=== PATIENT | female | born 1955 | race Caucasian/White ===

== ENCOUNTER → 2018-07-07 | Outpatient (CLI) | payer OTHER ==
--- NOTE | 2018-07-07 09:28 | RAD ---
DATE: 07/07/2018 EXAM: DIGITAL SCREEN BILAT W/CAD HISTORY: Previous left breast cancer COMPARISON: 06/17/2016 This study was interpreted with the benefit of Computerized Aided Detection (CAD). Breast Density: SCATTERED The breast parenchyma shows scattered fibroglandular densities. Breast parenchyma level B. FINDINGS: There is architectural distortion in the left breast which is unchanged and apparently posttherapeutic. An old breast biopsy marker is present on the left. No new or enlarging breast densities are seen. There are scattered benign type calcifications in both breasts. No suspicious microcalcifications have developed. IMPRESSION: Stable mammograms without evidence of malignancy. BI-RADS CATEGORY: 2 BENIGN FINDING(S) RECOMMENDED FOLLOW-UP: 12M 12 MONTH FOLLOW-UP PQRS compliance statement: Patient information was entered into a reminder system with a target due date for the next mammogram. Mammography is a sensitive method for finding small breast cancers, but it does not detect them all and is not a substitute for careful clinical examination. A negative mammogram does not negate a clinically suspicious finding and should not result in delay in biopsying a clinically suspicious abnormality. "Our facility is accredited by the [employer] Mammography [employer]."
== END | disposition home or self-care (01) ==
LOC: MAMMO 07:55
PROVIDERS: ATTEND Family Medicine
DX: Z12.31 Encounter for screening mammogram for malignant neoplasm of breast (principal)
CPT/HCPCS: 77067

== ENCOUNTER → 2019-08-17 | Outpatient (CLI) | payer MEDICARE, OTHER ==
--- NOTE | 2019-08-18 14:04 | RAD ---
DATE: 08/17/2019 EXAM: MAMMO DYLLAN SCREENING BILATERAL HISTORY: Routine screening. History of left breast cancer diagnosed in 2004. COMPARISON: 06/17/2016 and 07/07/2018 mammographic exams This study was interpreted with the benefit of Computerized Aided Detection (CAD). Breast Density: SCATTERED The breast parenchyma shows scattered fibroglandular densities. Breast parenchyma level B. FINDINGS: Biopsy clip marker involves the left upper inner breast anteriorly. Distortion involving the left breast presumably related to prior intervention is stable. No suspicious new distortion. No mass or suspicious calcification in the interval. IMPRESSION: Stable BI-RADS CATEGORY: 1 NEGATIVE RECOMMENDED FOLLOW-UP: 12M 12 MONTH FOLLOW-UP PQRS compliance statement: Patient information was entered into a reminder system with a target due date for the next mammogram. Mammography is a sensitive method for finding small breast cancers, but it does not detect them all and is not a substitute for careful clinical examination. A negative mammogram does not negate a clinically suspicious finding and should not result in delay in biopsying a clinically suspicious abnormality. "Our facility is accredited by the [employer] Mammography [employer]."
== END | disposition home or self-care (01) ==
LOC: MAMMO 07:40
PROVIDERS: ATTEND Family Medicine
DX: Z12.31 Encounter for screening mammogram for malignant neoplasm of breast (principal); Z85.3 Personal history of malignant neoplasm of breast
CPT/HCPCS: 77063; 77067

== ENCOUNTER → 2020-09-24 | Outpatient (CLI) | payer MEDICARE, OTHER ==
--- NOTE | 2020-09-25 14:03 | RAD ---
DATE: 09/24/2020 1:45 PM EXAM: MAMMO DYLLAN SCREENING BILATERAL HISTORY: Screening COMPARISON: 08/17/2019, 07/07/2018 Bilateral CC and MLO views of the breasts were performed. Bilateral breast tomosynthesis was performed in CC and MLO projections. This study was interpreted with the benefit of Computerized Aided Detection (CAD). FINDINGS: Breast Density: SCATTERED The breast parenchyma shows scattered fibroglandular densities. Breast parenchyma level B No suspicious masses, microcalcifications or architectural distortion is present to suggest malignancy in either breast. The visualized axillae are unremarkable. IMPRESSION: No mammographic evidence of malignancy. BI-RADS CATEGORY: 1 NEGATIVE RECOMMENDED FOLLOW-UP: 12M 12 MONTH FOLLOW-UP Annual screening mammography is recommended, unless clinically indicated sooner based on symptoms or change in physical exam. PQRS compliance statement: Patient information was entered into a reminder system with a target due date for the next mammogram. Mammography is a sensitive method for finding small breast cancers, but it does not detect them all and is not a substitute for careful clinical examination. A negative mammogram does not negate a clinically suspicious finding and should not result in delay in biopsying a clinically suspicious abnormality. "Our facility is accredited by the [employer] Mammography [employer]."
== END ==
LOC: MAMMO 13:41
PROVIDERS: ATTEND Family Medicine
DX: Z12.31 Encounter for screening mammogram for malignant neoplasm of breast (principal); N64.89 Other specified disorders of breast
CPT/HCPCS: 77063; 77067

== ENCOUNTER → 2021-09-24 | Outpatient (CLI) | payer MEDICARE, OTHER ==
--- NOTE | 2021-09-24 17:08 | RAD ---
Bilateral digital screening mammogram to include digital breast tomosynthesis (3-D mammography) 09/24 CLINICAL HISTORY: Screening study. Digital MLO and CC mammograms of both breasts were obtained. Additionally digital breast tomosynthesi s images (3-D mammography) of both breasts in the CC and MLO projections were obtained. Comparison study is dated 09/24/2020. The breast parenchyma is composed of scattered fibronodular densities which could obscure a lesion on mammography (breast density B). Benign-appearing calcifications are seen within both breasts. No spi culated mass is seen. No malignant appearing calcification or area of architectural distortion is not ed. Digital breast tomosynthesis images demonstrate no spiculated mass. No malignant appearing calcificat ion is seen. Impression: BI-RADS Category 1: Negative. There is no mammographic evidence of malignancy. Routine y early screening mammography is recommended for follow-up. This examination was reviewed with the aid of computer-aided detection. A mammogram does not have 100% sensitivity and therefore a negative imaging study should not delay fu rther work up of a suspicious abnormality. Patient information is entered into the reminder system with a target due date for the next screening mammogram of 09/24/2022. "Our facility is accredited by the [employer] Mammography [employer]." Electronically signed by: Abdirizak Dyer MD (09/24/2021 5:06 PM) [id number]
== END ==
LOC: MAMMO 08:44
PROVIDERS: ATTEND Family Medicine
DX: Z12.31 Encounter for screening mammogram for malignant neoplasm of breast (principal)
CPT/HCPCS: 77063; 77067